=== PATIENT | male | born 1985 | race Caucasian/White ===

== ENCOUNTER 2018-09-20 01:23 | Emergency (ER) | payer SELFPAY ==
[~2018-09-20] VITALS: Ht 170.2 cm; Wt 66.0 kg
[2018-09-20 01:26] VITALS: BP 133/82
[2018-09-20] MEDS ORDERED: HYDROcodone/APAP 10/325 MG TABLET PO STA (02:55)
[2018-09-20] MEDS ORDERED: CLINDAMYCIN 300 MG CAPSULE PO ONE (03:00)
[2018-09-20] MEDS ORDERED: HYDROcodone/APAP 10/325 MG TABLET ONE (03:04)
[2018-09-20] MEDS ORDERED: CLINDAMYCIN 300 MG CAPSULE ONE (03:04)
== END 2018-09-20 03:46 | disposition home or self-care (01) ==
LOC: ED 03:31
DX: K08.89 Other specified disorders of teeth and supporting structures (principal)
CPT/HCPCS: 99283

== ENCOUNTER 2020-06-19 23:03 | Emergency (ER) | payer MEDICAID ==
[~2020-06-19] VITALS: Ht 160 cm; Wt 66.0 kg
[2020-06-19 23:05] VITALS: BP 128/84
[2020-06-20] MEDS ORDERED: HYDROcodone/APAP 5/325 TABLET PO ONE
[2020-06-20] MEDS ORDERED: HYDROcodone/APAP 5/325 TABLET ONE (00:03)
== END 2020-06-20 02:19 | disposition home or self-care (01) ==
LOC: ED 23:33
DX: S02.40EA Zygomatic fracture, right side, initial encounter for closed fracture (principal); S63.521A Sprain of radiocarpal joint of right wrist, initial encounter; S63.522A Sprain of radiocarpal joint of left wrist, initial encounter; S00.91XA Abrasion of unspecified part of head, initial encounter; W18.30XA Fall on same level, unspecified, initial encounter; Y93.79 Activity, other specified sports and athletics; Y92.410 Unspecified street and highway as the place of occurrence of the external cause; Y99.8 Other external cause status
CPT/HCPCS: 29125; 70486; 99284